=== PATIENT | female | born 1980 | race Caucasian/White ===

== ENCOUNTER 2021-06-11 08:27 | Emergency (ER) | payer OTHER ==
[~2021-06-11] VITALS: Ht 160 cm; Wt 100.0 kg
[2021-06-11 08:45] VITALS: BP 119/79
[2021-06-11] MEDS ORDERED: HYDROcodone/APAP 5/325MG 1 TAB TABLET PO ONE (09:00)
--- NOTE | 2021-06-11 09:10 | PHYS DOC ---
Past History Past Medical History: No Pertinent History Past Surgical History: No Surgical History Alcohol Use: None Drug Use: None General Adult EDM: Chief Complaint: ANKLE PROBLEM HPI: HPI: 40-year-old female presents with right ankle pain. The patient was walking down her stairs carrying some things when she missed the last step or 2. She rolled her foot medially and fell onto her right side. She was unable to stand up on her ankle. She has not tried to walk. She now has swelling to the right lateral ankle. She denies any altered sensation. She has some mild low back pain from the fall but is not concerned about that at this time. Review of Systems: Review of Systems: Constitutional: Denies fever or chills Eyes: Denies change in visual acuity HENT: Denies nasal congestion or sore throat Respiratory: Denies cough or shortness of breath Cardiovascular: Denies chest pain or edema GI: Denies abdominal pain, nausea, vomiting, bloody stools or diarrhea : Denies dysuria Musculoskeletal: Right ankle pain Integument: Denies rash Neurologic: Denies headache, focal weakness or sensory changes Endocrine: Denies polyuria or polydipsia Lymphatic: Denies swollen glands Psychiatric: Denies depression or anxiety Current Medications: Current Meds: Current Medications Medications (Trade) Dose Ordered Sig/Jamila Start Time Stop Time Status Last Admin Dose Admin Acetaminophen/ Hydrocodone Bitart (Lortab 5/325) 1 tab 1X ONCE 06/11/21 09:00 06/11/21 09:07 MA Allergies: Allergies: Allergies Coded Allergies Type Severity Reaction Last Updated Verified No Known Drug Allergies 05/27/15 No Physical Exam: PE: Constitutional: Well developed, well nourished, no acute distress, non-toxic appearance. [] HENT: Normocephalic, atraumatic, bilateral external ears normal, oropharynx moist, no oral exudates, nose normal. [] Eyes: PERRLA, EOMI, conjunctiva normal, no discharge. [] Neck: Normal range of motion, no tenderness, supple, no stridor. [] Cardiovascular: Heart rate regular rhythm, no murmur [] Lungs & Thorax: Bilateral breath sounds clear to auscultation [] Abdomen: Bowel sounds normal, soft, no tenderness, no masses, no pulsatile masses. [] Skin: Warm, dry, no erythema, no rash. [] Back: No tenderness, no CVA tenderness. [] Extremities: Right lateral ankle swelling, tenderness. Range of motion deferred due to pain. [] Neurologic: Alert and oriented X 3, normal motor function, normal sensory function, no focal deficits noted. [] Psychologic: Affect normal, judgement normal, mood normal. [] Current Patient Data: Vital Signs: Vital Signs Date Time Temp Pulse Resp B/P (MAP) Pulse Ox O2 Delivery O2 Flow Rate FiO2 06/11/21 08:45 97.2 100 16 119/79 (92) 100 EKG: EKG: [] Radiology/Procedures: Radiology/Procedures: [] Impressions: EXAM: XR EXAM OF ANKLE_RIGHT 3VIEWS 06/11/2021 8:43 AM CLINICAL INDICATION: Fall, pain, swelling and lateral malleolus COMPARISON: None TECHNIQUE: 3 views of the right ankle FINDINGS: No acute fracture. Alignment is normal. Ankle mortise is symmetric and talar dome is intact. There is a prominent os trigonum. There is lateral and anterior soft tissue swelling. IMPRESSION: No acute osseous abnormality. Lateral and anterior soft tissue swelling. Electronically signed by: Gabbie Trujillo MD (06/11/2021 9:35 AM) [id number] DICTATED AND SIGNED BY: GABBIE TRUJILLO MD DATE: 06/11/21 0934 CC: ERNIE DOMINGUEZ DO; [facility] PAC ~MTH0 0 Heart Score: C/O Chest Pain: N/A Risk Factors: Risk Factors: DM, Current or recent (<one month) smoker, HTN, HLP, family history of CAD, obesity. Risk Scores: Score 0 - 3: 2.5% MACE over next 6 weeks - Discharge Home Score 4 - 6: 20.3% MACE over next 6 weeks - Admit for Clinical Observation Score 7 - 10: 72.7% MACE over next 6 weeks - Early Invasive Strategies Course & Med Decision Making: Course & Med Decision Making Pertinent Labs and Imaging studies reviewed. (See chart for details) Patient's x-rays negative for fracture. This appears to be at least a moderate sprain. We will place her in a stirrup splint. She is stable for discharge at this time. [] Dragon Disclaimer: Dragon Disclaimer: This electronic medical record was generated, in whole or in part, using a voice recognition dictation system. Departure Departure: Impression: Primary Impression: Moderate right ankle sprain Qualified Codes: S93.401A - Sprain of unspecified ligament of right ankle, initial encounter Disposition: HOME / SELF CARE / HOMELESS Condition: STABLE Referrals: [facility] DAMON PAC (PCP) Patient Instructions: Ankle Sprain, Acute, with Phase I [facility] ERNIE DOMINGUEZ DO Jun 11, 2021 09:10
--- NOTE | 2021-06-11 09:37 | RAD ---
EXAM: XR EXAM OF ANKLE_RIGHT 3VIEWS 06/11/2021 8:43 AM CLINICAL INDICATION: Fall, pain, swelling and lateral malleolus COMPARISON: None TECHNIQUE: 3 views of the right ankle FINDINGS: No acute fracture. Alignment is normal. Ankle mortise is symmetric and talar dome is intac t. There is a prominent os trigonum. There is lateral and anterior soft tissue swelling. IMPRESSION: No acute osseous abnormality. Lateral and anterior soft tissue swelling. Electronically signed by: Gabbie Trujillo MD (06/11/2021 9:35 AM) [id number]
[2021-06-11] MEDS ORDERED: HYDR-2759 PO ×2 (09:48→10:52)
== END 2021-06-11 10:06 | disposition home or self-care (01) ==
LOC: ER 08:27
DX: S93.401A Sprain of unspecified ligament of right ankle, initial encounter (principal); W18.39XA Other fall on same level, initial encounter; Y93.89 Activity, other specified; Y92.89 Other specified places as the place of occurrence of the external cause; Y99.8 Other external cause status
CPT/HCPCS: 73610; 99283